=== PATIENT | male | born 1950 | race Caucasian/White ===

== ENCOUNTER 2020-06-05 09:22 | Emergency (ER) | payer BC, SELFPAY ==
[2020-06-05 09:42] VITALS: BP 128/68; PULSE 71; RESP 18; TEMP 36.2; O2SAT 96
--- NOTE | 2020-06-05 10:01 | ED.GENADULT ---
HPI - General Adult General Chief complaint: Extremity Problem,Nontraumatic Stated complaint: left hip pain Time Seen by Provider: 06/05/20 10:27 Source: patient and RN notes reviewed Mode of arrival: ambulatory Limitations: no limitations History of Present Illness HPI narrative: 70-year-old male presents with complaints of left lateral hip pain for the past 7 days. Motrin (400mg) with little relief. Shaw denies any known injuries. 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 Denies radiation of pain. No numbness or tingling or bleeding. No swelling. No loss of mobility. Exacerbating factor consist of being weight and long walks. Denies recent long traveling or long car rides. Denies history of DVT or PE. No chest pain or dyspnea. Remains active. The patient reports she have not been diagnosed with COVID-19. The patient reports he is not waiting for the results of a COVID-19 lab test. The patient reports he do not have fever, chills, weakness, or fatigue. The patient reports he do not have a new or worsening cough or shortness of breath. The patient reports he do not have any rhinorrhea, congestion, sore throat, nausea, vomiting, abdominal pain, and diarrhea. Tolerating po intake well. Denies concerns for COVID-19 or exposures been home with limited outdoor exposure except for essential household needs, work, and return home. At this time, patient is not suspected of having COVID-19. Some parts of this dictation were generated by voice recognition software and may contain typographical and/or grammatical inaccuracies. Related Data Home Medications Medication Instructions Recorded Confirmed gabapentin 100 mg PO TID PRN 06/05/20 06/05/20 omeprazole 40 mg PO DAILY 06/05/20 06/05/20 pramipexole 1.5 mg PO DAILY 06/05/20 06/05/20 tadalafil 10 mg PO DAILY 06/05/20 06/05/20 Allergies Allergy/AdvReac Type Severity Reaction Status Date / Time No Known Allergies Allergy Unverified 06/05/20 09:59 Review of Systems Review of Systems: Narrative: CONSTITUTIONAL: Denies fever, chills, sweats. EYES: Denies visual changes, redness, discharge. ENT: Denies rhinorrhea, congestion, sore throat, otalgia. CARDIOVASCULAR: Denies chest pain, palpitations, edema. RESPIRATORY: Denies dyspnea, wheezing, cough. GASTROINTESTINAL: Denies abdominal pain, nausea, vomiting, diarrhea. GENITOURINARY: Denies dysuria, hematuria, abnormal discharge SKIN: Denies rash or itching. MUSCULOSKELETAL: Denies acute back pain or myalgia. Complains of Left lateral hip pain. NEUROLOGIC: Denies numbness, or focal weakness. PSYCHIATRIC: Denies anxiety or depression. All systems reviewed & are unremarkable except as noted in HPI and below. [facility] Past Medical History Medical History (Updated 06/06/20 @ 00:00 by Usha Rhodes) COPD (chronic obstructive pulmonary disease) Parkinson disease Surgical History Surgical History (Updated 06/05/20 @ 10:35 by SIMONA Friend) History of right knee surgery Family History Family History (Updated 06/05/20 @ 10:36 by SIMONA Friend) Father , Sepsis after sugery No problems noted. Mother , Bone cancer No problems noted. Social History Social History (Updated 06/10/20 @ 17:49 by SIMONA Friend) Smoking status: Current every day smoker Second hand tobacco smoke exposure: No Alcohol intake: never Substance use: never Living arrangements: with family Occupation/Education: occupation Gender identity (if verbalized by the patient): Male Sexual Orientation (if Verbalized by the Patient): Straight or Heterosexual Comments At time of signature, agree with nurse past medical, surgical, social, and family history. There is relevant patient's past medical history pertinent to the presenting complaint and no relevant family history pertinent to the presenting
[2020-06-05] MEDS: KETOROLAC (*BKC) 60 MG/2 ML VIAL IM (10:42)
== END 2020-06-05 11:10 | disposition home or self-care (01) ==
PROVIDERS: Emergency Provider Nurse Practitioner Family; PCP Family Medicine
DX: M25.552 Pain in left hip (principal); J44.9 Chronic obstructive pulmonary disease, unspecified; G20 Parkinson's disease
CPT/HCPCS: 96372; 99213; G0463; J1885

== ENCOUNTER 2023-05-28 11:00 | Outpatient (RCR) | payer MEDICARE, SELFPAY ==
--- NOTE | 2023-05-01 10:02 | OPREHPOC ---
Outpatient Therapy Plan of Care This is a Multidisciplinary Plan of Care that may contain components documented by all disciplines (PT, OT, and ST.) PT Problem 1 PT Problem #1 Knowledge Deficit PT Goal 1 Goal Independent with HEP Target Visit 8 PT Problem 2 PT Problem #2 Impaired Strength PT Goal 1 Goal DELILAH ankles 4/5 Target Visit 8 PT Goal 2 Goal DELILAH hips and knees 4/5 Target Visit 8 PT Problem 3 PT Problem #3 Pain PT Goal 1 Goal decrease pain to 5/10 at its worst Target Visit 8
--- NOTE | 2023-05-01 10:02 | PTOPEVAL1 ---
Assessment and note entered by Richard Rosales, PT Evaluation Information Assessment Status Evaluation Diagnosis OA of the L knee joint Onset Chronic Subjective Information Patient he has had X-rays showing the knee has bone spurs and is bone on bone. States it hurts with bending and besides a PMH of PD and COPD, has recently diagnosed lumbar stenosis. He has done cortisone and rooster shots before and describes the effects as minimal. Reported Pain Level Pain Score 3: Self Report Assessment PT Clinical Summary Vu is a 73 year old male coming into the clinic with a diagnosis of L knee OA. Patient is negative for all observed special tests besides 30 degree valgus stress test. Trouble recruiting quads and hamstrings, but may be more related to PD diagnosis and knee weakness. Patient should benefit from physical therapy to work on his L knee issues along with some therapy to improve initiation, lateral movement, and balance with PD centric exercises. Modalities and manual therapy as needed for pain. Plan of Care Interventions Electrical Stimulation,Gait Training,Hot Pack/Cold Pack,Manual Therapy,Neuro Re-education,Patient/ Caregiver Education,Therapeutic Activities, Therapeutic Exercise,Ultrasound Other Interventions cuping, taping, IASTM. PT Services Indicated Yes Treatment Frequency and 2x/wk for 4 weeks Duration These treatments will address the objective and functional deficits as defined above. The patient will be advanced safely and appropriately in order for the patient to progress towards his/her prior level of function. Additional exercises will be introduced and as well as a comprehensive home exercise program upon discharge, if needed, ?to ensure carryover of functional gains achieved in the clinic. This treatment plan has been reviewed and agreement upon by the patient.
--- NOTE | 2023-05-28 15:29 | PTOPDC ---
Assessment and note entered by Richard Rosales, PT Evaluation Information Assessment Status Discharge Diagnosis OA of L knee joint. Onset Chronic Subjective Information The patient reports he is not noticing much change in the knee and is unsure if he is just fighting the PD or his spinal stenosis. Reported Pain Level Pain Score 8: Self Report Assessment PT Clinical Summary Vu is a 73 year old male coming into the clinic with a diagnosis of OA of the L knee. Patient was evaluated on 04/30/23 and has attended 9 sessions of physical therapy. progress was limited secondary to comorbidity of PD which we worked on trying to improve initiation on, but patient did not like that and wanted to focus on the knee. Goal were not met. Discharged from physical therapy because of lack of progress and patient request. Plan of Care PT Services Indicated No
== END 2023-05-29 08:32 | disposition home or self-care (01) ==
LOC: ANHPT 11:00
DX: M17.12 Unilateral primary osteoarthritis, left knee (principal)
CPT/HCPCS: 97110; 97161; 97530

== ENCOUNTER 2023-06-13 08:43 | Outpatient (CLI) | payer MEDICARE, SELFPAY ==
--- NOTE | ~2023-06-13 | XR_ITS ---
MODIFIED ESOPHAGRAM HISTORY: Parkinson's disease TECHNIQUE: Modified barium esophagram was performed on 06/13/2023. I administered fluoroscopy and perfo rmed the exam with speech pathologist. Patient was seated for lateral fluoroscopic imaging for inges tion of thin liquids, pudding, solids and quantified amounts, followed by thin liquids in uncontrolle d amounts. This was recorded on tape. A single fluoroscopic spot image was also recorded. The DAP for this procedure was 2.443 Gycm2. The amount of fluoroscopy time used during this procedure was 3.5 mi nutes. FINDINGS: Oral stage: Adequate function. Pharyngeal stage: There is reduced laryngeal elevation and tongue base retraction resulting likely re sidue and recurrent laryngeal penetration with multiple consistencies but without richard aspiration. Cervical/esophageal stage: Adequate function. IMPRESSION: Pharyngeal dysphagia with laryngeal penetration but without aspiration. Please correlate with speech pathologist findings and specific feeding recommendations. Reviewed, dictated and finalized at location A. IMPRESSION: Pharyngeal dysphagia with laryngeal penetration but without aspirat ion. Please correlate with speech pathologist findings and specific feeding re commendations.
== END 2023-06-13 08:44 | disposition home or self-care (01) ==
PROVIDERS: Visit Provider Internal Medicine
DX: G20 Parkinson's disease (principal); H50.53 Vertical heterophoria; R13.10 Dysphagia, unspecified
CPT/HCPCS: 99199; 92507; 92611

== ENCOUNTER 2023-06-20 14:45 | Outpatient (RCR) | payer MEDICARE, SELFPAY ==
--- NOTE | 2023-06-05 17:39 | STOPEVAL1 ---
Assessment and note entered by Kenyatta Martinez EMBROIDERY MACHINE OPERATOR Evaluation Information Assessment Status Evaluation Reported Pain Level Pain Score 0: Self Report Assessment ST Clinical Summary BEDSIDE SWALLOW EVALUATION: This 73-year-old male patient was evaluated at bedside to assess his ability to safely tolerate oral intake. Pt. history is positive for Parkinson's Disease and COPD. Pt. indicated possible dysphagia stating ?I gotta work at it? when swallowing. He indicated that he ?gags? 2-3 times weekly, with mixed liquid and solid consistencies. Oral-motor exam revealed appropriate strength, ROM and symmetry for oral intake. Trials of purees, solids, and thin liquids via open cup and straw were administered at bedside. Oral transit was timely for thin liquids and purees, with mild lingual residue noted with solids. Residual was cleared with a liquid rinse. Laryngeal elevation was reduced, with multiple swallows observed inconsistently across consistencies. Immediate coughing was observed after one trial of thin liquids via open cup. Aspiration is suspected. Given the results of this assessment, a MBS is recommended. Further diet/tx. recommendations will be made pending MBS results. VOICE EVALUATION: This 73-year-old male pt. was evaluated to assess changes in voice/speech per physician request. Pt. history is positive for Parkinson?s disease and COPD, with Parkinson?s onset in 2017. Pt. indicated that his vocal quality has changed in the ?past couple? 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 He reports difficulty with breath support, stating ?deep breathing? can be challenging. Pt. also notes decreased vocal loudness his vocal quality becoming more monotone in nature.
--- NOTE | 2023-06-06 10:45 | OPREHPOC ---
Outpatient Therapy Plan of Care This is a Multidisciplinary Plan of Care that may contain components documented by all disciplines (PT, OT, and ST.) ST Problem 1 ST Problem #[address] Goal 1 Goal Demonstrate understanding of cause of vocal changes as they relate to Parkinson's Disease including but not limited to vocal loudness, phonation, and pitch. ST Problem 2 ST Problem #[address] Goal 1 Goal 1. Pt. will sustain ah a) with adequate loudness/increase of 4+ decibels, b) from an average of 5 seconds up to an average of 10 seconds by the time of discharge. 2. Pt. will participate in tasks to increase the strength of the vocal cores while maintaining appropriate use of vocal cords/avoiding over-use or abusive voice behaviors 90% of the time.
--- NOTE | 2023-06-13 11:32 | STOPEVAL1 ---
Assessment and note entered by SHERRON Garcia Evaluation Information Assessment Status Evaluation Reported Pain Level Pain Score 0: Self Report Assessment ST Clinical Summary MODIFIED BARIUM SWALLOW REPORT I. Complaint & History: The above 73-year-old male was seen for a modified barium swallow on 06/13/23. Pt. history is positive for Parkinson?s Disease and COPD. During a bedside swallow evaluation on 06/05/23 pt. indicated possible dysphagia stating ?I gotta work at it? when swallowing. He indicated that he ? gags? 2-3 times weekly, with mixed liquid and solid consistencies. At today?s examination, he denied dysphagia. Results of the bedside swallow study from the previous week revealed reduced laryngeal elevation, as evidenced by multiple swallows across consistencies and coughing after a thin liquid trial, indicative of possible aspiration. An MBS was recommended. The patient's current intake method is oral. His current diet consistency is regular (Level 7) with regular/thin liquids. The following are the results of the modified barium swallow. II. Evaluation Results: The patient was viewed in a lateral position and presented with trials of 5cc of thin liquid barium via spoon. Oral preparatory and oral stages were within functional limits. During the pharyngeal phase mild vallecular residue was observed, with limited inversion of the epiglottic ligament. Laryngeal penetration occurred following the swallow as a result of vallecular residual and was cleared with pt. initiating an independent throat clear. No cervical/esophageal disorders were observed. The patient was viewed in a lateral position and presented with trials of uncontrolled thin barium bolus via open cup and straw. Oral preparatory and oral stages were within functional limits. During the pharyngeal phase mild-moderate vallecular residue was observed, with limited inversion of the epiglottic ligament. No cervical /esophageal disorders were observed. No laryngeal penetration or asp
--- NOTE | 2023-06-13 11:33 | OPREHPOC ---
Outpatient Therapy Plan of Care This is a Multidisciplinary Plan of Care that may contain components documented by all disciplines (PT, OT, and ST.) ST Problem 1 ST Problem #[address] Goal 1 Goal Demonstrate understanding of cause of vocal changes as they relate to Parkinson's Disease including but not limited to vocal loudness, phonation, and pitch. ST Problem 2 ST Problem #[address] Goal 1 Goal 1. Pt. will sustain ah with a) adequate loudness/increase of 4+ decibels, b) from an average of 5 seconds up to an average of 10 seconds by the time of discharge. 2. Pt. will participate in tasks to increase the strength of the vocal cores while maintaining appropriate use of vocal cords/avoiding over-use or abusive voice behaviors 90% of the time. ST Problem 3 ST Problem #[address] Goal 1 Goal 1. Demonstrate understanding of dysphagia as they relate to Parkinson's Disease. 2. Demonstrate an understanding and use of compensatory strategies for safe swallow function/ oral intake (e.g. multiple swallows, throat clear/ cough following each bite/sip, etc.). 3. Participate in tongue base and laryngeal elevation exercises to improve swallow function.
--- NOTE | 2023-06-26 14:54 | PCSTNOTE ---
Patient did not show up for scheduled appointment this date.
--- NOTE | 2023-06-27 15:16 | PCSTNOTE ---
The patient treatment was not able to be completed on 06/27 due to no show/no call. Therapist called and left message on patient cell phone to call the office to discuss plan of treatment, continue and schedule or discharge. In the meantime will plan to continue treatment per plan of care.
--- NOTE | 2023-06-28 12:46 | STOPDC ---
Assessment and note entered by SHERRON Sanches Evaluation Information Assessment Status Discharge - Pt Not Presen Assessment ST Clinical Summary DISCHARGE SUMMARY This patient was seen for an initial Speech Therapy evaluation on 06/05 for both swallowing and for voice, then a Modified Barium Swallow study 06/13 with adjustments to the plan of care, and then two treatments of direct Speech Therapy. Results indicated patient had both a softer-than- normal vocal loudness and a mild risk for aspiration and therefore therapy focused on improving vocal loudness and addressing swallowing strengthening exercises. Patient was seen by this therapist last week for one visit and requested patient return twice this week to address voice and swallowing issues however patient did not attend or contact us for either scheduled visit. Therapist contacted patient's phone and left a message to contact us; patient then returned phone call and stated that he had obtained a job and would be unable to continue treatment. Patient is being discharged with progress toward goals but not achieved. Plan of Care ST Services Indicated No
== END 2023-08-20 08:21 | disposition home or self-care (01) ==
LOC: ANHST 14:45
PROVIDERS: Visit Provider Internal Medicine
DX: G20 Parkinson's disease (principal); R49.8 Other voice and resonance disorders; R49.0 Dysphonia
CPT/HCPCS: 92507; 92524; 92610; 92611; 99199